=== PATIENT | male | born 1940 | race African-American/Black ===

== ENCOUNTER 2024-09-13 01:01 | Emergency (ER) | payer MEDICARE, OTHER ==
[~2024-09-13] VITALS: Ht 172.7 cm; Wt 66.3 kg
[2024-09-13 01:21] VITALS: BP 141/72; TEMP 97.7; O2SAT 98
[2024-09-13 01:31] VITALS: PULSE 91; O2SAT 97
== END 2024-09-13 03:39 | disposition home or self-care (01) ==
LOC: ER 01:01
DX: Z00.00 Encounter for general adult medical examination without abnormal findings (principal); H40.9 Unspecified glaucoma; Z98.890 Other specified postprocedural states
CPT/HCPCS: 99281